=== PATIENT | male | born 1970 | race Hispanic/Latino ===

== ENCOUNTER 2018-03-12 00:51 | Emergency (ER) | payer OTHER ==
[2018-03-12] MEDS ORDERED: IBUPROFEN 600 MG TABLET ONE (01:26)
[2018-03-12] MEDS ORDERED: METOCLOPRAMIDE 10 MG TABLET ONE (01:26)
[2018-03-12] MEDS ORDERED: ACETAMINOPHEN EXTRA STRENGTH 500 MG TABLET ONE (01:27)
[2018-03-12] MEDS ORDERED: ONDANSETRON ODT 4 MG TAB ONE (01:27)
== END 2018-03-12 01:51 | disposition home or self-care (01) ==
LOC: EDH 00:51
DX: J11.1 Influenza due to unidentified influenza virus with other respiratory manifestations (principal); Z98.890 Other specified postprocedural states